=== PATIENT | male | born 1950 | race Caucasian/White ===

== ENCOUNTER 2020-01-26 12:49 | Outpatient (CLI) | payer MEDICARE, SELFPAY ==
--- NOTE | ~2020-01-26 | XR_ITS ---
XR_CERV2-3V_CR DATE: 01/26/2020 13:03 INDICATION: Neck pain. Spondylosis. TECHNIQUE: AP, open-mouth, odontoid, lateral views COMPARISON: None FINDINGS: C1 and C2 are normally aligned and the odontoid process is intact. No fracture or dislocati on or locked facet. There is minimal anterolisthesis and prominent degenerative disc disease at C6-7. There is moderately severe degenerative disc disease and posterior spurring at C5-6. Mild loss of di sc space height and moderately prominent posterior spurring at C4-5. Uncovertebral joint spurring is noted in the mid and particularly lower cervical spine, most pronounc ed at C4-5 and particularly C5-6 and C6-7. IMPRESSION: Extensive degenerative disc Reviewed, dictated and finalized at [facility]. Reviewed, dictated and finalized at [facility]. S ENGINEER IMPRESSION: Extensive degenerative disc
== END 2020-01-26 12:50 | disposition home or self-care (01) ==
PROVIDERS: PCP Emergency Medicine; Visit Provider Emergency Medicine
DX: M47.812 Spondylosis without myelopathy or radiculopathy, cervical region (principal); M50.30 Other cervical disc degeneration, unspecified cervical region
CPT/HCPCS: 72040

== ENCOUNTER 2020-04-21 12:40 | Outpatient (CLI) | payer MEDICARE, SELFPAY ==
--- NOTE | 2020-04-22 07:42 | P.PCNPFT_ITS ---
PFT Interpretation This is a pulmonary function test with pre and post-bronchodilator spirometry, plethysmography and diffusing capacity. The test was performed and results interpreted in accordance with the 2019 and 2005 ATS/ERS Task Force guidelines respectively using the Global Lung Function Initiative-2012 reference equations. Patient demonstrated good effort and c ooperation. Reproducibility criteria were met. The quality of the pre bronchodilator spirometry maneuver was Grade A and post bronchodilator spirometry maneuver was Grade A. Findings: Spirometry: contour the inspiratory and expiratory flow tracing are normal. The pre bronchodilator FVC is 4.90 L, 95% predicted. The pre bronchodilator FEV1 is 3.23 L, 84% predicted. The FEV1: FVC ratio 66%. The post bronchodilator FVC is 4.80 L, representing a 2% decrease. The post bronchodilator FEV1 is 3.17 L, representing a 2% decrease. Plethysmography: The total lung capacity is 8.66 L, 107% predicted. The functional residual capacity is 3.15 L, 73% predicted. The residual volume is 3.08 L, 115% predicted. Diffusing capacity the absolute diffusion capacity is 23.7, 83% predicted. The diffusing capacity corrected for alveolar volume is 3.71, 100% predicted. Impression: The spirometry is normal without evidence of an obstructive abnormality. There is no significant improvement after inhaling a single dose of albuterol. The lung volumes are normal. The diffusing capacity is normal. There are no prior studies for comparison
== END 2020-04-21 12:41 | disposition home or self-care (01) ==
PROVIDERS: PCP Emergency Medicine; Visit Provider Internal Medicine Cardiovascular Disease
DX: R06.00 Dyspnea, unspecified (principal)
CPT/HCPCS: 94060; 94726; 94729

== ENCOUNTER 2020-10-11 12:29 | Outpatient (CLI) | payer MEDICARE, SELFPAY ==
--- NOTE | 2020-10-11 12:46 | ECHO_ITS ---
Patient Info Name: Jamshid Travis Age: 70 years : 1950 Gender: Male Ht: 75 in Wt: 235 lbs BSA: 2.39 m2 HR: 60 bpm BP: 149 / 90 mmHg Heart Rhythm: Sinus Rhythm Exam Date: 10/11/2020 1:05 PM Exam Location: [facility] Patient Status: Outpatient Admit Date: 10/11/2020 Staff Ordering Physician: David Salinas DO Meter Setter: Leida Donato RDCS Attending Provider: David Salinas DO Referring Physician: Brad ORTA; Exam Type: CA echo doppler color flow Study Info Indications I51.9 - Heart disease, unspecified Complete two-dimensional, color flow and Doppler transthoracic echocardiogram is performed. Summary 1. Complete two-dimensional, color flow and Doppler transthoracic echocardiogram is performed. 2. Left ventricular chamber dimension is normal. 3. Left ventricular systolic function is normal, estimated at 60-65%. 4. The left ventricular diastolic function is grade I diastolic dysfunction. 5. E/e' 7 is minimally elevated. 6. There is trace mitral valve regurgitation. 7. There is trace tricuspid valve regurgitation. 8. No pulmonary hypertension, estimated pulmonary arterial systolic pressure is 30 mmHg. 9. There is trivial pericardial effusion. Left Ventricle E/e' 7 is minimally elevated. Left ventricular chamber dimension is normal. Left ventricular systolic function is normal, estimated at 60-65%. The left ventricular diastolic function is grade I diastolic dysfunction. Right Ventricle Right ventricular chamber dimension is normal. Right ventricular systolic function is normal. Left Atria Left atrial chamber dimension is normal. Right Atria Right atrial chamber dimension is normal. Aortic Valve The aortic valve is trileaflet. There is no aortic valve stenosis. There is no aortic valve regurgitation. Pulmonic Valve There is no pulmonic regurgitation. Mitral Valve There is no mitral valve stenosis. There is trace mitral valve regurgitation. Tricuspid Valve There is trace tricuspid valve regurgitation. No pulmonary hypertension, estimated pulmonary arterial systolic pressure is 30 mmHg. Pericardium/Pleural There is trivial pericardial effusion. Inferior Vena Cava Normal inferior vena cava with >50% collapse upon inspiration consistent with normal right atrial pressure, 5 mmHg. Aorta The aortic root size at the sinus of Valsalva is normal. Left Ventricular Outflow Tract Name Value Normal LVOT 2D LVOT Diameter 2.5 cm LVOT Doppler LVOT Peak Gradient 2 mmHg LVOT Mean Gradient 1 mmHg LVOT VTI 14 cm LVOT VTI/AV VTI Ratio 0.6 LVOT Stroke Volume 68 ml LVOT CO 5.3 l/min LVOT CI 2.2 l/min/m2 Pulmonic Valve Name Value Normal RVOT Doppler
== END 2020-10-11 12:30 | disposition home or self-care (01) ==
PROVIDERS: PCP Emergency Medicine; Visit Provider Internal Medicine Cardiovascular Disease
DX: I51.9 Heart disease, unspecified (principal)
CPT/HCPCS: 93306

== ENCOUNTER 2020-11-29 08:56 | Outpatient (CLI) | payer MEDICARE, SELFPAY ==
--- NOTE | ~2020-11-29 | CT_ITS ---
EXAMINATION: CT abdomen pelvis w con DATE: 11/29/2020 09:35 INDICATION: Left lower quadrant abdominal pain TECHNIQUE: Computed tomography (CT) of the abdomen and pelvis was performed with 100 cc Omnipaque 350 intravenous contrast. Automated exposure control and iterative reconstruction technique were employe d. Exam dose: 1381.44 mGy-cm total exam DLP. COMPARISON: None. FINDINGS: There is mild discoid atelectasis or scarring at the lung bases. Normal heart size. Coronary artery calcification. No pericardial or pleural effusion. The liver, gallbladder, bile ducts, spleen, pancreas, pancreatic duct, and adrenal glands and kidneys are unremarkable. No urinary tract calculus or hydroureteronephrosis is detected. The urinary bladde r is unremarkable. There is prostate moderate enlargement. There is atherosclerotic calcification but normal caliber of the abdominal aorta. No intraperitoneal or retroperitoneal or pelvic mass lesion or adenopathy or ascites. The appendix appears to be very small. There are numerous diverticula of the sigmoid and descending c olon; no CT evidence of diverticulitis. No bowel obstruction or intraperitoneal free air is detected. Very small fat-containing umbilical hernia and small fat-containing left inguinal hernia. There are bilateral L5 pars interarticularis defects with grade 2 anterolisthesis and severe degenera tive disc disease at L5-S1. Moderate anterior wedge compression fracture deformity of T12, likely chronic. Diffuse osteopenia. Diffuse idiopathic skeletal hyperostosis of the thoracic spine. Bilateral hip osteoarthritis. IMPRESSION: Diverticulosis of left colon; no CT evidence of diverticulitis Diffuse osteopenia Diffuse idiopathic skeletal hyperostosis of the thoracic spine Probably chronic moderate anterior wedge compression fracture deformity of T12 Bilateral L5 pars intra-articular is defects with grade 2 anterolisthesis and severe degenerative dis c disease at L5-S1 Bilateral hip osteoarthritis Reviewed, dictated and finalized at [facility]. Reviewed, dictated and finalized at [facility]. IMPRESSION: Diverticulosis of left colon; no CT evidence of diverticulitis Diffuse osteopenia Diffuse idiopathic skeletal hyperostosis of the thoracic spine Probably chronic moderate anterior wedge compression fracture deformity of T12 Bilateral L5 pars intra-articular is defects with grade 2 anterolisthesis and s evere degenerative disc disease at L5-S1 Bilateral hip osteoarthritis
== END 2020-11-29 08:57 | disposition home or self-care (01) ==
LOC: ANHIMG 09:02
PROVIDERS: PCP Emergency Medicine; Visit Provider Emergency Medicine
DX: R10.9 Unspecified abdominal pain (principal); K57.30 Diverticulosis of large intestine without perforation or abscess without bleeding; M85.88 Other specified disorders of bone density and structure, other site; M16.0 Bilateral primary osteoarthritis of hip
CPT/HCPCS: 74177; Q9967

== ENCOUNTER 2021-01-02 01:06 | Day surgery (SDC) | payer MEDICARE, SELFPAY ==
[2020-12-20 13:01] VITALS: BMI 28.8
--- NOTE | 2021-01-02 10:17 | P.PNAN_ITS ---
Anes - Initial Pre Proc Eval Procedure: Operation Date: 01/02/21 13:00 Proposed Procedures p Colonoscopy - Micheal David MD Date/Time: 01/02/21 10:17 Surgeon: Micheal David MD Pre Op Diagnosis: abdominal pain Patient Data Age: 70 Gender: M Height: 1.91 m Weight: 104.5 kg Allergies Allergy/AdvReac Type Severity Reaction Status Date / Time No Known Allergies Allergy Verified 01/02/21 11:45 Home Medications Medication Instructions Recorded Confirmed Type aspirin 81 mg tablet,delayed 81 mg PO DAILY 01/01/20 01/02/21 History release fluticasone propionate 50 See Rx Instructions INTRANASAL 01/01/20 01/02/21 History mcg/actuation nasal DAILY spray,suspension triamcinolone acetonide 0.1 % 1 applic TOPICAL DAILY PRN 01/01/20 01/02/21 History topical cream pravastatin 20 mg PO DAILY 12/20/20 01/02/21 History tamsulosin 0.4 mg PO HS 12/20/20 01/02/21 History Patient hx anesthesia problems: none Family hx anesthesia problems: none Results Review: All pre-operative results and documents have been reviewed as part of the pre-operative evaluation. [facility], LAT[facility] Past Medical History Medical History (Updated 01/02/21 @ 10:18 by Khang Guerrero MD) Abnormal echocardiogram Coronary artery disease DDD (degenerative disc disease), thoracolumbar Dyslipidemia Eczema GERD without esophagitis Hyperlipidemia Idiopathic chronic gout Murmur, cardiac Primary osteoarthritis, unspecified site Tobacco abuse Family History Family History Father Family history of cardiovascular disease Sibling Family history of cardiovascular disease Mother Acute myocardial infarction Social History Social History Smoking packs per day: 1 Smoking cigarettes per day: 20.0 Years smoked: 35 Smoking pack-years: 35.00 Smoking status: Former smoker Tobacco type: cigarettes and cigars Smoking end date: 02/18/02 Additional smoking assessment comments: quit cigarettes around 2005, smoked cigars until about 6 months ago (2020) Alcohol intake: current Drinks per week: 2 Substance use: current Substance use type: marijuana Other substance usage details: rarely Living arrangements: with family Additional living arrangements comments: lives with spouse Spiritual care concerns: No Anes - Eval Final PreProcedure Day of Procedure 01/02/21 10:17 Patient weight: overweight Heart: regular rate and rhythm Lungs: clear to auscultation and normal air movement Airway: Mallampati scale class II Neurological: alert and oriented Last oral intake: >/= 8 hours ASA classification: III Emergent: no Anesthetic plan: proceed Anesthesia type and monitoring: general GIVS Results Review: All pre-operative results and documents have been reviewed as part of the pre-operative evaluation. Informed Consent: The patient's anesthetic plan and its attendant risks and benefits were discussed with the patient/family/POA. Questions were solicited and answers provided to the satisfaction of the patient/family/POA.
[2021-01-02 11:46] VITALS: BP 125/88; PULSE 101; RESP 20; TEMP 36.8; O2SAT 96
[2021-01-02] MEDS: LACTATED RINGERS 1,000 ML 150 ML IV CONT (11:48)
--- NOTE | 2021-01-02 12:28 | PM.HPGS ---
History of Present Illness History of Present Illness Consent: Risks, benefits, and alternatives have been discussed and questions answered. Patient agrees to proceed with procedure. Chief complaint: abdominal pain Narrative: Jamshid Travis is a 70 year old male with 2 months of intermittent lower abdominal pain, cramping and constipation using MOM as needed. Last colonoscopy 2011 with diverticulosis and advised to repeat in [address] scan showed diverticulosis (reviewed) Review of Systems Constitutional: Constitutional: Denies headache(s) and Denies weakness Eyes: Eyes: Denies blurry vision ENT: Reports Normal hearing present, Denies headache(s) and Denies neck pain Cardiovascular: Cardiovascular: Denies chest pain and Denies dyspnea Respiratory: Respiratory: Denies dyspnea Gastrointestinal: Gastrointestinal: Reports no additional gastrointestinal complaints Genitourinary: Genitourinary: Denies dysuria Musculoskeletal: Musculoskeletal: Denies neck pain Integumentary/Breasts: Skin/Breast: Denies dry skin Neurologic: Reports Normal hearing present, Denies headache(s) and Denies weakness Psychiatric: Psychiatric: Denies anxiety Endocrine: Endocrine: Denies change in body appearance Hematologic/Lymphatic: Hematologic/Lymphatic: Denies easy bleeding Allergic/Immunologic: Allergic/Immunologic: Denies urticaria PMF Past Medical History Medical History (Updated 01/02/21 @ 12:29 by Micheal David MD) Abnormal echocardiogram Constipation Coronary artery disease DDD (degenerative disc disease), thoracolumbar Dyslipidemia Eczema GERD without esophagitis Hyperlipidemia Idiopathic chronic gout Lower abdominal pain Murmur, cardiac Primary osteoarthritis, unspecified site Tobacco abuse Family History Family History Father Family history of cardiovascular disease Sibling Family history of cardiovascular disease Mother Acute myocardial infarction Social History Social History Smoking packs per day: 1 Smoking cigarettes per day: 20.0 Years smoked: 35 Smoking pack-years: 35.00 Smoking status: Former smoker Tobacco type: cigarettes and cigars Smoking end date: 02/18/02 Additional smoking assessment comments: quit cigarettes around 2005, smoked cigars until about 6 months ago (2020) Alcohol intake: current Drinks per week: 2 Substance use: current Substance use type: marijuana Other substance usage details: rarely Living arrangements: with family Additional living arrangements comments: lives with spouse Spiritual care concerns: No Meds Home Medications and Allergies Home Medications Medication Instructions Recorded Confirmed Type aspirin 81 mg tablet,delayed 81 mg PO DAILY 01/01/20 01/02/21 History release fluticasone propionate 50 See Rx Instructions INTRANASAL 01/01/20 01/02/21 History mcg/actuation nasal DAILY spray,suspension triamcinolone acetonide 0.1 % 1 applic TOPICAL DAILY PRN 01/01/20 01/02/21 History topical cream pravastatin 20 mg PO DAILY 12/20/20 01/02/21 History tamsulosin 0.4 mg PO HS 12/20/20 01/02/21 History Allergies Allergy/AdvReac Type Severity Reaction Status Date / Time No Known Allergies Allergy Verified 01/02/21 11:45 Vital Signs Vital Signs - 24 hr 01/02/21 11:46 Temperature 98.3 F Pulse Rate 101 H Respiratory Rate 20 Blood Pressure 125/88 Pulse Oximetry 96 Exam Const: General: comfortable and no acute distress HENMT: General nose exam: Normal nares present Eyes: General: appearance normal, both eyes and all related structures Neck: Neck: no JVD Resp: Auscultation: clear to auscultation bilaterally Cardio: Rate: regular rate Rhythm: regular rhythm GI: Inspection: non-distended GI Palp: Yes Soft to palpation Skin: General skin exam: normal color N
[2021-01-02 12:54] VITALS: BP 117/78; PULSE 88; RESP 18; O2SAT 96
[2021-01-02 13:04] VITALS: BP 113/77; PULSE 80; RESP 18; O2SAT 96
[2021-01-02 13:14] VITALS: BP 125/81; PULSE 88; RESP 20; O2SAT 96
== END 2021-01-02 13:28 | disposition home or self-care (01) ==
PROVIDERS: PCP Emergency Medicine; Visit Provider Internal Medicine Gastroenterology
PROC: 0DJD8ZZ Inspection of Lower Intestinal Tract, Via Natural or Artificial Opening Endoscopic (ICD-10-PCS; CPT 45378; principal; 2021-01-02 13:00)
DX: Z12.11 Encounter for screening for malignant neoplasm of colon (principal); D12.2 Benign neoplasm of ascending colon; K59.00 Constipation, unspecified; K57.30 Diverticulosis of large intestine without perforation or abscess without bleeding; K64.8 Other hemorrhoids; E78.5 Hyperlipidemia, unspecified; K21.9 Gastro-esophageal reflux disease without esophagitis; I25.10 Atherosclerotic heart disease of native coronary artery without angina pectoris; M1A.00X0 Idiopathic chronic gout, unspecified site, without tophus (tophi); Z87.891 Personal history of nicotine dependence; F12.90 Cannabis use, unspecified, uncomplicated; Z79.82 Long term (current) use of aspirin
CPT/HCPCS: 45385; 88305; J2001; J2704; J7120

== ENCOUNTER 2021-11-08 14:48 | Outpatient (CLI) | payer MEDICARE, SELFPAY ==
--- NOTE | ~2021-11-08 | XR_ITS ---
EXAMINATION: XR abdomen obstructive series DATE: 11/08/2021 15:03 INDICATION: Epigastric pain TECHNIQUE: Supine and upright views of the abdomen. FINDINGS: CT dated 11/29/2020 The visualized lung parenchyma is normal.. There is a nonobstructive bowel gas pattern. Gas and stool are seen throughout the colon to the level of the rectum. There is no free air. No abnormal calcifi cations are seen. There are pelvic phleboliths. No acute osseous abnormality. IMPRESSION: 1. No acute abdominal abnormality. Reviewed, dictated and finalized at location [facility].
== END 2021-11-08 14:49 | disposition home or self-care (01) ==
PROVIDERS: PCP Emergency Medicine; Visit Provider Emergency Medicine
DX: R93.89 Abnormal findings on diagnostic imaging of other specified body structures (principal)
CPT/HCPCS: 74019

== ENCOUNTER 2024-04-28 11:43 | Emergency (ER) | payer MEDICARE, SELFPAY ==
[2024-04-28 11:43] VITALS: BP 152/91; PULSE 83; RESP 16; TEMP 36.7; O2SAT 97
--- NOTE | 2024-04-28 13:03 | ED.ABDPAIN ---
HPI - Abdominal Pain General Chief Complaint: Abdominal Pain <Brianne Taylor PA-C - Last Filed: 05/01/24 10:14> Stated Complaint: abd pain <Brianne Taylor PA-C - Last Filed: 05/01/24 10:14> Time Seen by Provider: 04/28/24 13:04 <Brianne Taylor PA-C - Last Filed: 05/01/24 10:14> Focused HPI: This is a 73 year old male that presents to the ER for abdominal pain. Ongoing since last night. Reports every time he swallowed something he would get severe pain in his chest/epigastrium. He took some tums with only little relief. GENERAL: Well-appearing, well-nourished, and in no acute distress. HEAD: Normocephalic, atraumatic. CHEST: Clear to auscultation. ?No respiratory distress. HEART: Regular rate and rhythm.? NEURO: ?Alert and oriented x3. Patient screened in triage and initial orders placed.? ?Additional care and disposition to be based upon?diagnostic testing and treatment. <Brianne Taylor PA-C - Last Filed: 05/01/24 10:14> Source: patient <Jace Hahn PA-C - Last Filed: 04/29/24 02:04> Mode of arrival: ambulatory <Jace Hahn PA-C - Last Filed: 04/29/24 02:04> Limitations: no limitations <KENN Segura Last Filed: 04/29/24 02:04> History of Present Illness HPI narrative: Agree with MSE note above. Patient describes a burning type pain to the epigastrium. States that is specifically associated with eating and drinking. States that the burning pain does radiate superiorly. States that since yesterday the pain is largely subsided however he still feels a little uneasy. Denies vomiting, urinary symptoms, diarrhea, exertional chest pain, lightheadedness, dizziness, syncope, shortness of breath, cough, leg swelling, palpitations. <Jace Hahn PA-C - Last Filed: 04/29/24 02:04> Related Data Home Medications: Home Medications ?Medication ?Instructions ?Recorded ?Confirmed ?Last Taken ?Type aspirin 81 mg tablet,delayed 81 mg PO DAILY 01/01/20 04/28/24 Unknown History release (Ecotrin Low Strength) fluticasone propionate 50 See Rx Instructions intranasal 01/01/20 04/28/24 Unknown History mcg/actuation nasal DAILY spray,suspension (Flonase Allergy Relief) <Brianne Taylor PA-C - Last Filed: 05/01/24 10:14> Allergies/Adverse Reactions: Allergies Allergy/AdvReac Type Severity Reaction Status Date / Time No Known Allergies Allergy Verified 04/28/24 10:41 <Brianne Taylor PA-C - Last Filed: 05/01/24 10:14> Review of Systems Review of Systems: All systems as dictated in HPI <Jace Hahn PA-C - Last Filed: 04/29/24 02:04> [facility] Past Medical History Medical History: Medical History Abnormal computed tomography angiography (CTA) Constipation Lower abdominal pain Hyperlipidemia Abnormal echocardiogram Eczema GERD without esophagitis Idiopathic chronic gout Primary osteoarthritis, unspecified site Dyslipidemia Coronary artery disease Tobacco abuse DDD (degenerative disc disease), thoracolumbar Murmur, cardiac <Brianne Taylor PA-C - Last Filed: 05/01/24 10:14> Family History Family History: Family History Father Family history of cardiovascular disease Sibling Family history of cardiovascular disease Mother Acute myocardial infarction <Brianne Taylor PA-C - Last Filed: 05/01/24 10:14> Social History Social History: Social History (Updated 04/28/24 @ 10:45 by Carolina Stoddard MA) Smoking packs per day: 1 Smoking cigarettes per day: 20.0 Years smoked: 35 Smoking pack-years: 35.00 Smoking status: Former smoker Tobacco type: cigarettes and cigars Smoking end date: 02/18/02 Additional smoking assessment comments: quit cigarettes around 2005, smoked cigars until about 6 months ago (2020) Alcohol intake: current Drinks per week: 2 Substance use: former Substance use type: does not use Do You Feel Safe in your Home?: Yes Lack of Transportation: No Lack of Food: Never True Current Housing: Decline to Answer Concerned About Future Housing: Decline to Answer Difficulty Paying Gas/Electric Bills: Decline to Answer Difficulty Paying for Meds: Decline to Answer Currently Unemployed: Decline to Answer Education: Decline to Answer Difficulty w/ Childcare or Family Care: Decline to Answer Living arrangements: with family Additional living arrangements comments: lives with spouse Spiritual care concerns: No <Brianne Taylor PA-C - Last Filed: 05/01/24 10:14> Exam Narrative: GENERAL: Well-appearing, well-nourished, and in no acute distress. HEAD: Normocephalic, atraumatic. EYES: PERRLA and EOMI. ENT: Nares clear, no rhinorrhea or epistaxis. Mucous membranes moist. Oropharynx without tonsillar hypertrophy exudate or other lesions. NECK: Supple. No adenopathy or masses. CHEST: No respiratory distress. Clear to auscultation. No wheezes rales or rhonchi HEART: Regular rate and rhythm. No murmur heard. Normal peripheral pulses. ABDOMEN: Soft, grossly nontender, nondistended, normal active bowel sounds. MSK: Normal range of motion. No edema. SKIN: Warm, dry, no rash. NEURO: Alert and oriented x4. No focal deficits. PSYCH: Normal mood and affect. <Jace Hahn PA-C - Last Filed: 04/29/24 02:04> Course Reevaluation(s) Reevaluation #1: Patient is feeling much better overall. He feels ready to go home. <Jace Hahn PA-C - Last Filed: 04/29/24 02:04> Date: 04/28/24 <Jace Hahn PA-C - Last Filed: 04/29/24 02:04> Time: 19:40 <KENN Segura Last Filed: 04/29/24 02:04> Vital Signs Vital signs: Vital Signs Temperature 98.0 F 04/28/24 11:43 Pulse Rate 83 04/28/24 11:43 Respiratory Rate 16 04/28/24 11:43 Blood Pressure 152/91 H 04/28/24 11:43 Pulse Oximetry 97 04/28/24 11:43 Oxygen Delivery Room Air 04/28/24 11:43 Temperature 98.5 F 04/28/24 20:09 Pulse Rate 68 04/28/24 20:09 Respiratory Rate 18 04/28/24 20:09 Blood Pressure 128/92 H 04/28/24 20:09 Pulse Oximetry 94 04/28/24 20:09 Oxygen Delivery Room Air 04/28/24 11:43 <Brianne Taylor PA-C - Last Filed: 05/01/24 10:14> Vital Signs Temperature 98.0 F 04/28/24 11:43 Pulse Rate 83 04/28/24 11:43 Respiratory Rate 16 04/28/24 11:43 Blood Pressure 152/91 H 04/28/24 11:43 Pulse Oximetry 97 04/28/24 11:43 Oxygen Delivery Room Air 04/28/24 11:43 Temperature 98.5 F 04/28/24 20:09 Pulse Rate 68 04/28/24 20:09 Respiratory Rate 18 04/28/24 20:09 Blood Pressure 128/92 H 04/28/24 20:09 Pulse Oximetry 94 04/28/24 20:09 Oxygen Delivery Room Air 04/28/24 11:43 <Jace Hahn PA-C - Last Filed: 04/29/24 02:04> MDM - Abdominal Pain MDM Narrative Medical decision making narrative: This is a 73-year-old male who presents to the ED for chief complaint of epigastric abdominal pain, N/V. Vitals are normal. Exam remarkable for the above. He is describing a burning pain that radiates from the epigastrium into the chest when he eats. He has also reporting that his PCP wanted to start him on Protonix but he never picked up the prescription. CBC is unremarkable. CMP also unremarkable. Troponin is negative. EKG shows no acute ischemia. Urinalysis grossly negative as well. Presentation is consistent with GERD like symptoms. He was given GI cocktail, Pepcid, Zofran with significant relief of symptoms. He is essentially asymptomatic on re-evaluation and would like to be discharged home. Shared decision making to avoid CT imaging today due to clinical diagnosis of gastritis, and lack of systemic signs or focal abdominal tenderness to indicate a scan. Rx for omeprazole given. Patient will be discharged in stable condition. Supportive measures discussed and return precautions given. Patient is understanding and agreeable with plan for discharge with PCP follow-up. <Jace Hahn PA-C - Last Filed: 04/29/24 02:04> Lab Data Result diagrams: 04/28/24 14:05 04/28/24 14:05 <Brianne Taylor PA-C - Last Filed: 05/01/24 10:14> Labs: Lab Results 04/28/24 Range/Units 14:05 WBC 10.3 H (4.5-10.0) K/mm3 RBC 4.93 (4.6-6.20) M/mm3 Hgb 15.6 (14.0-18.0) g/dL Hct 47.0 (42.0-52.0) % MCV 95.3 (80-100) fl MCH 31.6 (26-34) pg MCHC 33.2 (32-36) g/dl RDW 12.0 (11.5-14.5) % Plt Count 275 (150-375) k/mm3 MPV 9.7 (7.4-10.4) fl Immature Gran % (Auto) 0.4 (0-0.5) % Neut % (Auto) 64.0 (45.5-73.1) % Lymph % (Auto) 22.9 (18.3-44.2) % Slope % (Auto) 9.9 H (2.6-8.5) % Eos % (Auto) 2.2 (0-4.4) % Baso % (Auto) 0.6 (0.2-1.2) % Lymph # (Auto) 2.35 (0.9-3.2) K/mm3 Slope # (Auto) 1.0 H (0.1-0.6) K/mm3 Eos # (Auto) 0.2 (0-0.3) K/mm3 Baso # (Auto) 0.1 (0.0-0.1) K/mm3 Abs Immat Gran (auto) 0.04 H (0.00-0.031) K/mm3 Absolute Neuts (auto) 6.6 (1.3-6.7) K/mm3 Absolute Nucleated RBC 0.000 (0.0-0.012) K/mm3 Nucleated RBC % 0.0 (0.0-0.2) % Sodium 140 (137-145) mmol/L Potassium 4.5 (3.4-5.0) mmol/L Chloride 105 (98-107) mmol/L Carbon Dioxide 24 (22-30) mmol/L Anion Gap 11 (4-12) mmol/L BUN 21 H (9-20) mg/dL Creatinine 1.00 (0.7-1.3) mg/dL Estim Creat Clear Calc 69 ml/min Estimated GFR > 60 (59 - ) Glucose 108 (65-110) mg/dL Calcium 9.9 (8.4-10.2) mg/dL Total Bilirubin 0.9 (0.2-1.3) mg/dL AST 24 (17-59) U/L ALT 24 (6-50) U/L Alkaline Phosphatase 83 (38-126) U/L Troponin I < 0.012 (0.000-0.034) ng/mL Total Protein 8.0 (6.3-8.2) g/dL Albumin 4.7 (3.5-5.1) g/dL Lipase 51 (23-300) U/L Urine Color Yellow (Yellow) Urine Appearance Clear (Clear) Urine pH 5.0 (5.0-9.0) Ur Specific [place] 1.021 (1.001-1.035) Urine Protein Negative (Negative) mg/dL Urine Glucose (UA) Negative (Negative) mg/dL Urine Ketones Negative (Negative) mg/dL Ur Blood (Man) Negative (Negative) Urine Nitrate Negative (Negative) Urine Bilirubin Negative (Negative) Urine Urobilinogen 0.2 (<2.0) mg/dL Leukocyte Esterase Rfl Negative (Negative) IMAN/UL <Brianne Taylor PA-C - Last Filed: 05/01/24 10:14> Lab Results 04/28/24 Range/Units 14:05 WBC 10.3 H (4.5-10.0) K/mm3 RBC 4.93 (4.6-6.20) M/mm3 Hgb 15.6 (14.0-18.0) g/dL Hct 47.0 (42.0-52.0) % MCV 95.3 (80-100) fl MCH 31.6 (26-34) pg MCHC 33.2 (32-36) g/dl RDW 12.0 (11.5-14.5) % Plt Count 275 (150-375) k/mm3 MPV 9.7 (7.4-10.4) fl Immature Gran % (Auto) 0.4 (0-0.5) % Neut % (Auto) 64.0 (45.5-73.1) % Lymph % (Auto) 22.9 (18.3-44.2) % Slope % (Auto) 9.9 H (2.6-8.5) % Eos % (Auto) 2.2 (0-4.4) % Baso % (Auto) 0.6 (0.2-1.2) % Lymph # (Auto) 2.35 (0.9-3.2) K/mm3 Slope # (Auto) 1.0 H (0.1-0.6) K/mm3 Eos # (Auto) 0.2 (0-0.3) K/mm3 Baso # (Auto) 0.1 (0.0-0.1) K/mm3 Abs Immat Gran (auto) 0.04 H (0.00-0.031) K/mm3 Absolute Neuts (auto) 6.6 (1.3-6.7) K/mm3 Absolute Nucleated RBC 0.000 (0.0-0.012) K/mm3 Nucleated RBC % 0.0 (0.0-0.2) % Sodium 140 (137-145) mmol/L Potassium 4.5 (3.4-5.0) mmol/L Chloride 105 (98-107) mmol/L Carbon Dioxide 24 (22-30) mmol/L Anion Gap 11 (4-12) mmol/L BUN 21 H (9-20) mg/dL Creatinine 1.00 (0.7-1.3) mg/dL Estim Creat Clear Calc 69 ml/min Estimated GFR > 60 (59 - ) Glucose 108 (65-110) mg/dL Calcium 9.9 (8.4-10.2) mg/dL Total Bilirubin 0.9 (0.2-1.3) mg/dL AST 24 (17-59) U/L ALT 24 (6-50) U/L Alkaline Phosphatase 83 (38-126) U/L Troponin I < 0.012 (0.000-0.034) ng/mL Total Protein 8.0 (6.3-8.2) g/dL Albumin 4.7 (3.5-5.1) g/dL Lipase 51 (23-300) U/L Urine Color Yellow (Yellow) Urine Appearance Clear (Clear) Urine pH 5.0 (5.0-9.0) Ur Specific [place] 1.021 (1.001-1.035) Urine Protein Negative (Negative) mg/dL Urine Glucose (UA) Negative (Negative) mg/dL Urine Ketones Negative (Negative) mg/dL Ur Blood (Man) Negative (Negative) Urine Nitrate Negative (Negative) Urine Bilirubin Negative (Negative) Urine Urobilinogen 0.2 (<2.0) mg/dL Leukocyte Esterase Rfl Negative (Negative) IMAN/UL <Jace Hahn PA-C - Last Filed: 04/29/24 02:04> Critical Care Time Critical Care Time Critical Care Time: No <Brianne Taylor PA-C - Last Filed: 05/01/24 10:14> Discharge Plan Discharge Clinical Impression: GERD (gastroesophageal reflux disease) Qualifiers: Esophagitis presence: esophagitis presence not specified Qualified Code(s): K21.9 - Gastro-esophageal reflux disease without esophagitis <Brianne Taylor PA-C - Last Filed: 05/01/24 10:14> Patient Disposition: Home, Self-Care <Brianne Taylor PA-C - Last Filed: 05/01/24 10:14> Condition: Stable <KENN Thomas Last Filed: 05/01/24 10:14> Instructions: Antibiotic Form, GERD (Gastroesophageal Reflux Disease) (ED) <KENN Thomas Last Filed: 05/01/24 10:14> Additional Instructions: Your exam and imaging today are reassuring overall. Please take omeprazole as prescribed. Follow-up closely with PCP on this issue. If you have any new or worsening symptoms please return to the ER for further evaluation. <Brianne Taylor PA-C - Last Filed: 05/01/24 10:14> Patient Language: [place] Timorese <Brianne Taylor PA-C - Last Filed: 05/01/24 10:14> Prescriptions: New omeprazole 40 mg capsule,delayed release(DR/EC) 40 mg PO DAILY Qty: 30 0RF No Action pantoprazole [Protonix] 40 mg tablet,delayed release (DR/EC) 40 mg PO DAILY Qty: 90 2RF aspirin [Ecotrin Low Strength] 81 mg tablet,delayed release (DR/EC) 81 mg PO DAILY fluticasone propionate [Flonase Allergy Relief] 50 mcg/actuation spray,suspension See Rx Instructions intranasal DAILY Rx Instructions: 1-2 intranasal daily; administer into each nostril cholecalciferol (vitamin D3) 50 mcg (2,000 unit) capsule 100 mcg PO DAILY Qty: 180 2RF magnesium oxide 250 mg magnesium tablet See Rx Instructions .ROUTE .COMPLEX Qty: 60 3RF Dose Instruction: TAKE 1 TABLET BY MOUTH DAILY Rx Instructions: TAKE 1 TABLET BY MOUTH DAILY pravastatin 40 mg tablet 40 mg PO DAILY Qty: 90 2RF <Brianne Taylor PA-C - Last Filed: 05/01/24 10:14> Follow-up/Referrals: Jamshid Winn MD [Primary Care Provider] - <Brianne Taylor PA-C - Last Filed: 05/01/24 10:14> Time of Disposition: 19:41 <Brianne Taylor PA-C - Last Filed: 05/01/24 10:14> 19:41 <Jace Hahn PA-C - Last Filed: 04/29/24 02:04>
--- NOTE | 2024-04-28 13:05 | ECG_ITS ---
Test Date: 2024-04-28 14:07:43 Measurements Intervals [place] Rate: 71 P: 42 [place]: 144 QRS: 13 QRSD: 113 T: 37 QT: 406 QTc: 443 Interpretive Statements SINUS RHYTHM MODERATE INTRAVENTRICULAR CONDUCTION DELAY [110+ ms QRS DURATION] No previous ECG available for comparison Electronically Signed On 04-28-2024 15:08:19 CDT by Kt Cabrales M.D.
--- OUTSIDE RECORDS SUMMARY | 2024-04-28 13:20 | XMS_ITS | Clinical Summary ---
Author Organization [facility] Address [address] [place] [address] Care Team Providers Care Carrot Harvester Name Role Phone Unavailable Primary Care Provider Unavailabl e Source Comments [facility],non-owned Affiliates and Associated Physician Practices is amultiple site organization consisting of ambulatory clinics and hospital sitesin [place], [place], [place] and [place]. This disclosure is being madepursuant to the Care Everywhere program and may not contain all information available regarding this patient. Last updated 17.[facility] [employer] Allergies No known active allergies Immunizations Name Administration Dates Next Due INFLUENZA VACCINE, HIGH-DOSE , QUADR. (FLUZONE HIGH-DOSE QUADRIVALENT; 65Y+), 0.7 ML (HD-IIV4) 11/25/2018 Social History Tobacco Use Types Packs/Day Years Used Date Smoking Tobacco: Never Assessed Sex and Gender Information Value Date Recorded Sex Assigned at Not on file Gender Identity Not on file Sexual Orientation Not on file Plan of Treatment Health Maintenance Due Date Last Done Comments COLOGUARD (AGES 45-75) - COL ON CA SCREENING 1951 COLON MONITORING 1951 COLONOSCOPY - COLON CA SCREENING 1951 CT COLONOGRAPHY - COLON CA SCREENING 1950 Colorectal Cancer Screening 1950 FIT - COLON CA SCREENING 1951 FLEX SIG - COLON CA SCREENING 1951 LIPID TESTING 1950 HEPATITIS C SCREENING 04/29/1969 DTAP/TDAP/TD VACCINES (1 - Tdap) 05/03/1970 PNEUMOCOCCAL VACCINE 50+ (1 of 1 - PCV) 05/03/2001 ZOSTER VACCINE (1 of 2) 05/03/2001 COVID-19 VACCINE ( - 2023-2 5 season) 2023 INFLUENZA VACCINE (#1) 2023 11/25/2018 DEPRESSION SCREENING 02/19/2024 MEDICARE AWV CALENDAR YEAR 2024 Respiratory Syncytial Virus (RSV) Vaccine Pt: or over 60 yrs (1 - 1-dose 75+ series) 05/03/2026 HEPATITIS B VACCINE Aged Out No longe r eligible based on patient's age to complete this topic HIB VACCINE Aged Out No longer eligi ble based on patient's age to complete this topic HPV VACCINE Aged Out No longer eligi ble based on patient's age to complete this topic MENINGOCOCCAL (Group B) VACCINE Aged Out No longer eligible based on patient's age to complete this topic MENINGOCOCCAL VACCINE Aged Out No simin raquel eligible based on patient's age to complete this topic
--- OUTSIDE RECORDS SUMMARY | 2024-04-28 13:20 | XMS_ITS | Patient Health Summary ---
Author Organization [facility] Address [address] [place] [address] Care Team Providers Care Supervisor Car Installations Name Role Phone Unavailable Primary Care Provider Unavailabl e Note from [facility],non-owned Affiliates and Associated Physician Practices is amultiple site organization consisting of ambulatory clinics and hospital sitesin [place], [place], [place] and [place]. This disclosure is being madepursuant to the Care Everywhere program and may not contain all information available regarding this patient. Last updated 17.[facility] Allergies No known active allergies Immunizations * INFLUENZA VACCINE, HIGH-DOSE, QUADR. (FLUZONE HIGH-DOSE QUADRIVALENT; 65Y+), 0.7 ML (HD-IIV4)(Given 11/25/2018) Social History Tobacco Use Types Packs/Day Years Used Date Smoking Tobacco: Never Assessed Sex and Gender Information Value Date Recorded Sex Assigned at Not on file Gender Identity Not on file Sexual Orientation Not on file
--- OUTSIDE RECORDS SUMMARY | 2024-04-28 13:20 | XMS_ITS | Referral Summary ---
Author Organization [facility] Address [address] [place] [address] Care Team Providers Care Jira Developer Name Role Phone Unavailable Primary Care Provider Unavailabl e Source Comments [facility],non-owned Affiliates and Associated Physician Practices is amultiple site organization consisting of ambulatory clinics and hospital sitesin [place], [place], [place] and [place]. This disclosure is being madepursuant to the Care Everywhere program and may not contain all information available regarding this patient. Last updated 17.[facility] [employer] Allergies No known active allergies Immunizations Name Administration Dates Next Due INFLUENZA VACCINE, HIGH-DOSE , QUADR. (FLUZONE HIGH-DOSE QUADRIVALENT; 65Y+), 0.7 ML (HD-IIV4) 11/25/2018 Social History Tobacco Use Types Packs/Day Years Used Date Smoking Tobacco: Never Assessed Sex and Gender Information Value Date Recorded Sex Assigned at Not on file Gender Identity Not on file Sexual Orientation Not on file Plan of Treatment Not on file
[2024-04-28 14:13] LABS: Basophils Absolute Auto 0.1 K/mm3 (0.0-0.1); Basophils Percent Auto 0.6 % (0.2-1.2); Eosinophils Absolute Auto 0.2 K/mm3 (0-0.3); Eosinophils Percent Auto 2.2 % (0-4.4); Hemoglobin 15.6 g/dL (14.0-18.0); Immature Granulocyte Absolute 0.04 K/mm3 (0.00-0.031); Immature Granulocyte Percent A 0.4 % (0-0.5); Lymphocytes Absolute Auto 2.35 K/mm3 (0.9-3.2); Lymphocytes Percent Auto 22.9 % (18.3-44.2); Mean Corpuscular HGB Conc 33.2 g/dl (32-36); Mean Corpuscular Hemoglobin 31.6 pg (26-34); Mean Corpuscular Volume 95.3 fl (80-100); Mean Platelet Volume 9.7 fl (7.4-10.4); Monocytes Percent Auto 9.9 % (2.6-8.5); Neutrophils Absolute Auto 6.6 K/mm3 (1.3-6.7); Platelet Count Result 275 k/mm3 (150-375); Red Blood Count 4.93 M/mm3 (4.6-6.20); White Blood Count 10.3 K/mm3 (4.5-10.0)
[2024-04-28 14:18] LABS: Add Urine Microscopic? NO; Appearance Urine Clear (Clear); Bilirubin Urine Negative (Negative); Blood Urine Negative (Negative); Color Urine Yellow (Yellow); Glucose Urine UA Negative (Negative); Ketones Urine Negative (Negative); Leukocyte Esterase Ur Negative LEU/UL (Negative); Nitrate Urine Negative (Negative); Protein Urine Negative (Negative); Specific Grav Ur 1.021 (1.001-1.035); Urobilinogen Urine 0.2 mg/dL (<2.0)
[2024-04-28 14:24] LABS: Alanine Aminotransferase 24 U/L (6-50); Albumin Level 4.7 g/dL (3.5-5.1); Alkaline Phosphatase 83 U/L (38-126); Anion Gap 11 mmol/L (4-12); Aspartate Amino Transferase 24 U/L (17-59); Bilirubin,Total 0.9 mg/dL (0.2-1.3); Blood Urea Nitrogen 21 mg/dL (9-20); Calcium 9.9 mg/dL (8.4-10.2); Carbon Dioxide 24 mmol/L (22-30); Chloride 105 mmol/L (98-107); Estimated CRCL calculation 69 ml/min; Estimated Glomerular Filt Rate > 60; Glucose 108 mg/dL (65-110); Lipase 51 U/L (23-300); Potassium 4.5 mmol/L (3.4-5.0); Sodium 140 mmol/L (137-145)
[2024-04-28 14:35] LABS: Troponin I < 0.012 ng/mL (0.000-0.034)
--- OUTSIDE RECORDS SUMMARY | 2024-04-28 14:40 | XMS_ITS | Clinical Summary ---
Author Organization [facility] Address [address] [place] [address] Care Team Providers Care Him Director Name Role Phone Unavailable Primary Care Provider Unavailabl e Source Comments [facility],non-owned Affiliates and Associated Physician Practices is amultiple site organization consisting of ambulatory clinics and hospital sitesin [place], [place] and [place]. This disclosure is being madepursuant to the Care Everywhere program and may not contain all information available regarding this patient. Last updated 17.[facility] [employer] Allergies No known active allergies Immunizations Name [...]
--- OUTSIDE RECORDS SUMMARY | 2024-04-28 14:40 | XMS_ITS | Referral Summary ---
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 LACE TEARING Gender Identity Not on file Sexual Orientation Not on file Last Filed Vital Signs Vital Sign Reading Time Taken Comments Blood Pressure - - Pulse - - Temperature 37 C (98.6 F) 02/03/2020 1:02 PM SUPERVISOR LACE TEARING Respiratory Rate - - Oxygen Saturation - - Inhaled Oxygen Concentration - - Weight - - Height - - Body Mass Index - - Plan of Treatment Not on file Insurance MEDICARE SOLUTIONS MEDICARE SOLUTIONS Care Teams Logging Shovel Operator Relationship Specialty Start Date End Date Jamshid Winn MD [address] [place] [address] PCP - General Emergency Medicine 01/11/20 Aj Lu [address] [place] [address] 01/11/20
--- OUTSIDE RECORDS SUMMARY | 2024-04-28 14:40 | XMS_ITS | Encounter Summary ---
Author Organization [facility] Address [address] [place] [address] Care Team Providers Care Buncher Hand Name Role Phone Aj Lu Primary Care Provider [phone] Jamshid Winn MD Primary Care Provide r Aj Lu Unavailable [phone] Encounter Details Date Type Department Care Team (Late st Contact Info) Description 04/25/2016 Orders Only [facility] ProviderJose MD [address] [place] [id number] Social History Tobacco Use Types Packs/Day Years Used Date Smoking Tobacco: Never Assessed Sex and Gender Information Value Date Recorded Sex Assigned at Not on file Legal Sex Male 3:38 AM ANIMAL TRAINER SUPERVISOR Gender Identity Not on file Sexual Orientation Not on file documented as of this encounter Plan of Treatment Not on file documented as of this encounter Procedures Procedure Name Priority Date/Time Associated Diagnosis Comments CARDIOLOGY REPORT 04/25/2016 documented in this encounter Results * CARDIOLOGY REPORT (04/25/2016) Anatomical Region Laterality Modality Other Narrative 04/25/2016 Ordered by an unspecified provider. Historical Provider [facility] DESIREE STEIN Final Result documented in this encounter Visit Diagnoses Not on filedocumented in this encounter Care Teams Buncher Hand Relationship Specialty Start Date End Date Aj Lu [address] [place] [id number] PCP - General 05/18/16 01/10/20 Jamshid Winn MD [address] [place] [address] PCP - General Emergency Medicine 01/11/20 Aj Lu [address] [place] [address] 01/11/20 documented as of this encounter
--- OUTSIDE RECORDS SUMMARY | 2024-04-28 14:40 | XMS_ITS | Referral Summary ---
Author Organization [facility] Address [address] [place] [address] Care Team Providers Care Historian Dramatic Arts Name Role Phone Unavailable Primary Care Provider Unavailabl e Source Comments [facility],non-owned Affiliates and Associated Physician Practices is amultiple site organization consisting of ambulatory clinics and hospital sitesin [place], [place] and [place]. This disclosure is being madepursuant to the Care Everywhere program and may not contain all information available regarding this patient. Last updated 17.[facility] [employer] Allergies No known active allergies Immunizations Name [...]
--- OUTSIDE RECORDS SUMMARY | 2024-04-28 14:40 | XMS_ITS | Clinical Summary ---
Author Organization [facility] [place] [address] Address [address] [place] [address] Care Team Providers Care Settlement Clerk Name Role Phone Jamshid Winn MD Primary Care Provide r Aj Lu Unavailable [phone] Allergies No known active allergies Social History Tobacco Use Types Packs/Day Years Used Date Smoking Tobacco: Never Assessed Personal Safety Answer Date Recorded Getting School Help Needed Not on file 04/14 Sex and Gender Information Value Date Recorded Sex Assigned at Not on file Legal Sex Male 3:38 AM INFORMATION TECHNOLOGY ACCOUNT MANAGER Gender Identity Not on file Sexual Orientation Not on file Last Filed Vital Signs Vital Sign Reading Time Taken Comments Blood Pressure - - Pulse - - Temperature 37 C (98.6 F) 02/03/2020 1:02 PM INFORMATION TECHNOLOGY ACCOUNT MANAGER Respiratory Rate - - Oxygen Saturation - - Inhaled Oxygen Concentration - - Weight - - Height - - Body Mass Index - - Plan of Treatment Not on file Insurance MED[employer]ARE [employer]IONS MED[employer]IONS Care Teams Settlement Clerk Relationship Specialty Start Date End Date Jamshid Winn MD [address] [place] [address] PCP - General Emergency Medicine 01/11/20 Aj Lu [address] [place] [address] 01/11/20
--- OUTSIDE RECORDS SUMMARY | 2024-04-28 14:40 | XMS_ITS | Patient Health Summary ---
Author Organization [facility] Address [address] [place] [address] Care Team Providers Care Tape Weaver Name Role Phone Unavailable Primary Care Provider Unavailabl e Note from [facility],non-owned Affiliates and Associated Physician Practices is amultiple site organization consisting of ambulatory clinics and hospital sitesin [place], [place], [place] and [place]. This disclosure is being madepursuant to the Care Everywhere program and may not contain all information available regarding this patient. Last updated 17.[facility] Allergies No known active allergies Immunizations * INFLUENZA VACCINE, HIGH-DOSE, QUADR. (FLUZONE HIGH-DOSE QUADRIVALENT; 65Y+), 0.7 ML (HD-IIV4)(Given 11/25/2018) Social History Tobacco Use Types Packs/Day Years Used Date Smoking Tobacco: Never Assessed Sex and Gender Information Value Date Recorded Sex Assigned at Not on file Gender Identity Not on file Sexual Orientation Not on file
[2024-04-28 17:16] VITALS: BP 144/88; PULSE 68; RESP 24; O2SAT 96
[2024-04-28 18:27] VITALS: BP 138/81; PULSE 63; RESP 19; O2SAT 97
[2024-04-28] MEDS: ONDANSETRON INJ 4 MG/2 ML VIAL IV PUSH (18:29)
[2024-04-28] MEDS: FAMOTIDINE 20 MG/2 ML VIAL IV PUSH (18:31)
[2024-04-28] MEDS: BELLADONNA ALK/PHENOB ELIX 10 ML, MAG HYDROX/ALUMINUM HYD/SIMETH 30 ML, LIDOCAINE 2% VI... PO (18:34)
[2024-04-28 20:09] VITALS: BP 128/92; PULSE 68; RESP 18; TEMP 36.9; O2SAT 94
== END 2024-04-28 20:10 | disposition home or self-care (01) ==
PROVIDERS: Physician Assistant; Emergency Provider Physician Assistant; PCP Emergency Medicine
DX: K21.9 Gastro-esophageal reflux disease without esophagitis (principal); E78.5 Hyperlipidemia, unspecified; M19.90 Unspecified osteoarthritis, unspecified site; I25.10 Atherosclerotic heart disease of native coronary artery without angina pectoris
CPT/HCPCS: 36415; 80053; 81003; 83690; 84484; 85025; 93005; 96374; 96375; 99284; A9270; J2405